=== PATIENT | male | born 1990 ===

== ENCOUNTER 2024-02-08 12:21 | Outpatient (AMB) | payer OTHER, BC, SELFPAY ==
--- NOTE | 2024-02-08 12:17 | MHC.OFFWIV ---
Intake Vital Signs 02/08/24 12:23 Height 6 ft 1 in Weight 168 lb BMI 22.2 BP 110/78 Blood Pressure Location Lt brachial Position Sitting Pulse 74 Pulse Source Pulse Oximeter Temp 97.5 F Temp Source Temporal Artery Scan Pulse Oximetry (%) 98 Oxygen Delivery Method Room Air Intake Visit Reasons: [employer] Blurred vision/works with chemicals/Work Intake Note: pt is here today blurred vision started today Patient Tobacco Use Status: Never used Tobacco Allergies No Known Allergies Allergy (Verified 02/08/24 12:25) Do you need a note to return to daycare/school/sports/work: Yes HPI HPI Comments History of Present Illness Details Patient is a 33yo M who presents to office with R eye complaint He was at work giving a tour to someone. Upon completion he walked through an area where there was chemicals but had no contact exposure He said he sat down at his computer and noticed the lateral aspect of his R eye was blurry. No complete loss of vision. No symptoms to L eye No contacts or glasses use Occured 2 hours ago suddenly. No recent HT or LOC He washed his face and eyes immediately and did an emergency eye white work cleaner x15 minutes Was red and irritated and helped clear up a little but re-occurred almost immediately He denies similar symptoms in the past He said minimal headache that occurred on his drive over here Describes it as a blurred vision to the lateral aspect of his R eye PFS Social History Patient Tobacco Use Status: Never used Tobacco Review of Systems Const Denies chills, Denies fever(s), Denies frequent falls and Reports headache(s) Eyes Reports blurry vision, Reports change in vision, Denies diplopia, Denies loss of vision and Denies eye pain ENT Denies vertigo, Denies dizziness, Reports headache(s) and Denies nasal discharge Card Denies syncope Musc Denies tingling Neuro Denies vertigo, Denies dizziness, Denies syncope, Denies frequent falls, Reports headache(s), Denies focal weakness, Denies loss of vision, Denies tingling and Denies paresthesias Physical Exam Vital Signs: Last Vital Signs Temp 97.5 F 02/08/24 12:23 Pulse 74 02/08/24 12:23 BP 110/78 02/08/24 12:23 Pulse Ox 98 02/08/24 12:23 Oxygen Delivery Method Room Air 02/08/24 12:23 BMI result Body Mass Index 22.2 General: Non-toxic, NAD. Speaking full sentences. Skin: Warm dry throughout. No periorbital edema or erythema. Minimal dry skin to R upper eyelid without discharge (ongoing x 1 month) Eye: EOMI, PERRLA. + photophobia R eye. no conjunctiva injection or discharge bilaterally 120 visual field to L eye when testing independently. visual field to approx 90-100 degrees when testing R eye independently Attempted funduscpic exam R eye reveals + red reflex but unable to visualize optic disc of vessels on undilated eye Respiratory: No respiratory distress MSK: Full ROM extremities. Neurology: A/O. CN 2-12 grossly intact. Negative pronator drift. 5/5 development administrator strength. No aphasia or facial droop. Gait without abnormality Psych: Good mood and affect Assessment & Plan Assessment & Plan (1) Blurred vision, right eye: Code(s): H53.8 - Other visual disturbances Plan: Patient seen and evaluated. No need for eye irrigation as he did this already and there was no chemical contact No conjunctival erythema or FB noted I called [facility] and they had no openings for today I called [facility]; MD Edy lang see patient today. he will have mother in law bring him to appointment. Any worsening symptoms as discussed with pt, he will go immediately to ER Patient gave verbal understanding and had no additional questions or concerns at time of discharge All questions answered Coding Level of Care Code Est Pt Level 3 (63304) Diagnoses Blurred vision, right eye H53.8
[2024-02-08 12:23] VITALS: BP 110/78; PULSE 74; TEMP 36.4; O2SAT 98; BMI 22.2
== END 2024-02-08 13:26 | disposition home or self-care (01) ==
PROVIDERS: Visit Provider Physician Assistant
DX: H53.8 Other visual disturbances (principal); Z04.2 Encounter for examination and observation following work accident
CPT/HCPCS: 99213